=== PATIENT | male | born 1975 ===

== ENCOUNTER 2017-11-11 22:54 | Emergency (ER) | payer BC ==
[2017-11-12] MEDS ORDERED: oxyCODONE/Acetamin 5/325 MG* TAB PO ONE (00:48)
[2017-11-12] MEDS ORDERED: Ibuprofen TAB* 800 MG PO ONE (00:48)
[2017-11-12 01:28] VITALS: BP 135/92
--- NOTE | 2017-11-12 04:48 | ED ---
Guadalupe Robles Abhishek, scribed for Mary Saleh MD on 11/12/17 at 0341 . HPI Chest Pain - HPI Summary HPI Summary: The pt is a 42 y/o male with a chief complaint of chest pain. Pt was previously playing hockey and states he was hit in the side of the chest on the left side ( by another person's shoulder). The pt describes the pain as a discomfort rather than a sharp pain. No other pain reported. The patient rates the pain 7/10 in severity. Symptoms aggravated by nothing. Symptoms alleviated by nothing. - History of Current Complaint Chief Complaint: EDChestWallPain Time Seen by Provider: 11/12/17 00:38 Hx Obtained From: Patient Timing: Constant Initial Severity: Moderate Current Severity: Moderate Pain Intensity: 7 Pain Scale Used: 0-10 Numeric Chest Pain Location: Discrete at: - Left side of the chest near the ribs Chest Pain Radiates: No Aggravating Factor(s): Nothing Alleviating Factor(s): Nothing Associated Signs and Symptoms: Positive: Chest Pain - Allergy/Home Medications Allergies/Adverse Reactions: Allergies Allergy/AdvReac Type Severity Reaction Status Date / Time No Known Allergies Allergy Verified 06/26/14 10:05 PMH/Surg Hx/FS Hx/Imm Hx Endocrine/Hematology History: Denies: Hx Diabetes, Hx Thyroid Disease Cardiovascular History: Denies: Hx Hypertension Respiratory History: Denies: Hx Asthma, Hx Chronic Obstructive Pulmonary Disease (COPD) GI History: Denies: Hx Ulcer Infectious Disease History: No Infectious Disease History: Denies: Hx Clostridium Difficile, Hx Hepatitis, Hx Human Immunodeficiency Virus (HIV), Hx of Known/Suspected MRSA, Hx Shingles, Hx Tuberculosis, Hx Known/ Suspected VRE, Traveled Outside the [place] in Last 30 Days - Family History Known Family History: Positive: Cardiac Disease Negative: Diabetes - Social History Occupation: Employed Full-time Alcohol Use: Occasionally Substance Use Type: Reports: None Smoking Status (MU): Never Smoked Tobacco Review of Systems Constitutional: Negative Eyes: Negative ENT: Negative Cardiovascular: Negative Respiratory: Negative Gastrointestinal: Negative Genitourinary: Negative Musculoskeletal: Other - Left sided chest pain by the ribs (Discomfort) Skin: Negative Neurological: Negative Psychological: Normal All Other Systems Reviewed And Are Negative: Yes Physical Exam - Summary Physical Exam Summary: VITAL SIGNS: Reviewed. GENERAL: ~Patient is a well-developed and nourished (MALE) who is lying comfortable in the stretcher. Patient is not in any acute respiratory distress. HEAD AND FACE: No signs of trauma. No ecchymosis, hematomas or skull depressions. No sinus tenderness. EYES: PERRLA, EOMI x 2, No injected conjunctiva, no nystagmus. EARS: Hearing grossly intact. Ear canals and tympanic membranes are within normal limits. MOUTH: Oropharynx within normal limits. NECK: Supple, trachea is midline, no adenopathy, no JVD, no carotid bruit, no c- spine tenderness, neck with full ROM. CHEST: mild tenderness over the left lower chest wall LUNGS: Clear to auscultation bilaterally. No wheezing or crackles. CVS: Regular rate and rhythm, S1 and S2 present, no murmurs or gallops appreciated. ABDOMEN: Soft, non-tender. No signs of distention. No rebound no guarding, and no masses palpated. Bowel sounds are normal. EXTREMITIES: FROM in all major joints, no edema, no cyanosis or clubbing. NEURO: Alert and oriented x 3. No acute neurological deficits. Speech is normal and follows commands. SKIN: Dry and warm Triage Information Reviewed: Yes Vital Signs On Initial Exam: Initial Vitals Temp Pulse Resp BP Pulse Ox 98.5 F 66 16 136/88 99 11/11/17 23:13 11/11/17 23:13 11/11/17 23:13 11/11/17 23:13 11/11/17 23:13 Vital Signs Reviewed: Yes Procedures - Procedure Summary Procedure Summary: Bedside US revealed good pleural sliding on the left side with bedside ultrasound consistent with no pneumothorax. Diagnostics - Vital Signs Vital Signs Temp Pulse Resp BP Pulse Ox 11/12/17 01:28 97.9 F 63 16 135/92 98 11/11/17 23:13 98.5 F 66 16 136/88 99 - Laboratory Lab Statement: Any lab studies that have been ordered have been reviewed, and results considered in the medical decision making process. - Radiology Chest X-ray Radiology Interpretation Completed By: ED Physician - Rib with Chest X-ray reveals negative findings as per ED Physician. Chest Pain Course/Dx - Course Course Of Treatment: The pt is a 42 y/o male who is presenting to the [facility] with a chief complaint of chest pain s/p hockey injury. The pt recieved with a Chest x-ray with the ribs and showed negative findings. The pt also recieved a bedside ultrasound. The pt will be discharged home with a dx of chest wall contusion. - Diagnoses Provider Diagnoses: Chest wall contusion Discharge - Sign-Out/Discharge Documenting (check all that apply): Discharge - Home - Discharge Plan Condition: Stable Disposition: HOME Prescriptions: Ibuprofen TAB* [Motrin TAB* 800 MG] 800 mg PO ONCE PRN #30 tab PRN Reason: Pain oxyCODONE/Acetamin 5/325 MG* [Percocet 5/325 TAB*] 1 tab PO Q6H PRN #14 tab MDD 4 PRN Reason: Pain Patient Education Materials: Contusion in Adults (ED) Referrals: Ivan Roberto MD [Primary Care Provider] - (Follow up with primary care physician within 1 to 2 days.) Additional Instructions: RETURN TO EMERGENCY DEPARTMENT FOR ANY NEW OR WORSENING SYMPTOMS The documentation as recorded by the Guadalupe bustos Abhishek accurately reflects the service I personally performed and the decisions made by Therese seymour Abdul, MD.
--- NOTE | 2017-11-12 07:37 | RAD ---
INDICATION: Left rib injury COMPARISON: None TECHNIQUE: Multiple views of the ribs were obtained. FINDINGS: Bones: There is no evidence of acute rib fracture. LUNGS: The lungs are clear. There is no pneumothorax. Pleural spaces: There is no evidence of hemothorax. Other: None IMPRESSION: NO ACUTE RIB FRACTURE.
== END 2017-11-12 01:28 | disposition home or self-care (01) ==
LOC: ED 22:54
DX: S20.212A Contusion of left front wall of thorax, initial encounter (principal); R07.89 Other chest pain; W22.8XXA Striking against or struck by other objects, initial encounter; Y93.22 Activity, ice hockey; Y92.9 Unspecified place or not applicable
CPT/HCPCS: 99282; A9270-GY